=== PATIENT | female | born 1945 | race Caucasian/White ===

== ENCOUNTER 2018-04-26 10:10 | Day surgery (SDC) | payer MEDICARE, OTHER ==
[~2018-04-26] VITALS: Ht 154.9 cm; Wt 75.0 kg
[~2018-04-26 10:10] MED LIST: ATOR10 PO; ENAL10 PO; ENAL20 PO; FURO40 PO; Hair, Skin & N1 EACH PO; LEVSOD125 PO; Micro-K10 MEQ PO; Miralax17 GM PO; Synthroid112 MCG PO
== END 2018-04-26 11:52 | disposition home or self-care (01) ==
LOC: ORSCSDS 10:10
PROVIDERS: Surgery
PROC: 0DJD8ZZ Inspection of Lower Intestinal Tract, Via Natural or Artificial Opening Endoscopic (ICD-10-PCS; principal; 2018-04-26 11:30)
DX: Z12.11 Encounter for screening for malignant neoplasm of colon (principal); I10 Essential (primary) hypertension; E78.5 Hyperlipidemia, unspecified; E03.9 Hypothyroidism, unspecified; Z79.899 Other long term (current) drug therapy
CPT/HCPCS: J7120

== ENCOUNTER → 2023-04-27 | Outpatient (CLI) | payer MEDICARE, OTHER ==
[2023-04-27 20:04] LABS: Bun/Creatinine Ratio 19.7 (12.0-20.0); Calcium, Blood 9.1 mg/dL (8.5-10.1); Creatinine, Blood 0.66 mg/dL (0.40-1.00); Potassium, Blood 3.4 mmol/L (3.5-5.5)
== END | disposition home or self-care (01) ==
LOC: LAB SHORT 18:05 → LAB 18:05
PROVIDERS: Internal Medicine
DX: R09.89 Other specified symptoms and signs involving the circulatory and respiratory systems (principal)
CPT/HCPCS: 80048; 83880